=== PATIENT | male | born 1950 | race Caucasian/White ===

== ENCOUNTER 2020-09-27 07:55 | Outpatient (CLI) | payer MEDICARE ==
[2020-09-27 17:36] LABS: #Basophils 0.1 10x3/uL (0.0-0.2); #Eosinphils 0.2 10x3/uL (0.0-0.5); #Neutrophils 5.1 10x3/uL (1.5-8.4); %Basophils 0.6 % (0.0-2.0); %Eosinophils 1.7 % (0.0-6.0); %Lymphocytes 29.1 % (18.0-47.0); %Monocytes 11.7 % (0.0-10.0); %Neutrophils 56.7 % (40.0-75.0); Hemoglobin 14.5 g/dL (14.0-18.0); Mean Corpuscular HGB CONC 33.1 G/DL (32.0-36.0); Mean Corpuscular Hemoglobin 29.8 PG (27.0-33.0); Mean Corpuscular Volume 89.9 fl (80.0-100.0); Mean Platelet Volume 10.9 fl (7.4-10.4); Platelet Count 209 10x3/uL (130-400); Red Blood Cell (RBC) Count 4.87 10x6/uL (4.40-5.80); White Blood Cell (WBC) Count 8.9 10x3/uL (4.5-11.0)
[2020-09-27 18:00] LABS: PTT 25.5 sec (22.0-33.0); Prothrombin Time 10.7 sec (9.5-12.1)
[2020-09-27 18:46] LABS: ALT (SGPT) 62 U/L (8-55); AST (SGOT) 43 U/L (5-34); Albumin 4.4 g/dL (3.4-4.8); Alkaline Phosphatase 53 U/L (40-110); Anion Gap 18 mmol/L (10-20); BUN (Urea Nitrogen) 17 mg/dL (8.4-25.7); Bilirubin, Total 0.6 mg/dL (0.2-1.2); Calc. Creatinine Clearance 0 mL/min (70-130); Calcium 9.7 mg/dL (7.8-10.44); Carbon Dioxide 21 mmol/L (23-31); Chloride 103 mmol/L (98-107); Globulin 2.8 g/dL (2.4-3.5); Glucose 132 mg/dL (80-115); Potassium 4.3 mmol/L (3.5-5.1); Protein, Total 7.2 g/dL (5.8-8.1); Sodium 138 mmol/L (136-145)
[2020-09-28 04:15] LABS: SARS-CoV-2 PCR by NAA Not Detected (NotDetected)
== END 2020-09-27 07:56 | disposition home or self-care (01) ==
LOC: LABBT 07:55
PROVIDERS: ATTEND Internal Medicine Cardiovascular Disease
DX: Z01.812 Encounter for preprocedural laboratory examination (principal); Z20.822 Contact with and (suspected) exposure to COVID-19
CPT/HCPCS: 80053; 85025; 85610; 85730; U0003; U0005; 87635

== ENCOUNTER → 2020-10-02 | Day surgery (SDC) | payer MEDICARE, MEDICAID ==
[2020-10-01 10:02] VITALS: BMI 35.4
[~2020-10-02] MED LIST: Clopidogrel Bisulfate 300 MG TAB ONE; Fentanyl 100 MCG/2 ML VIAL ONE; Heparin 10,000 UNITS/ 10 ML VIAL ONE; Iopamidol 370 76% 100 ML VIAL ONE; Iopamidol 370 76% 50 ML VIAL FS ONE; Midazolam HCl 2 mg/2 ml Vial ONE; Nitroglycerin 100MG/250ML BOT 250 ML ONE; Verapamil 5 MG/2 ML VIAL ONE; hydrALAZINE 20 MG/ML VIAL ONE
--- NOTE | 2020-10-03 07:21 | EKG ---
Test Reason : PREOP Blood Pressure : / mmHG Vent. Rate : 066 BPM Atrial Rate : 066 BPM P-R Int : 184 ms QRS Dur : 084 ms QT Int : 382 ms P-R-T Axes : 054 -20 039 degrees QTc Int : 400 ms Normal sinus rhythm Moderate voltage criteria for LVH, may be normal variant Inferior infarct , age undetermined Nonspecific ST-T changes Abnormal ECG No previous ECGs available Confirmed by DR. Yunier BROWN ([id number]) on 10/03/2020 7:20:36 AM Referred By: KIMBERLY Confirmed By:DR. Yunier BROWN
--- NOTE | 2020-10-03 07:23 | EKG ---
Test Reason : POST STENT Blood Pressure : / mmHG Vent. Rate : 068 BPM Atrial Rate : 068 BPM P-R Int : 192 ms QRS Dur : 090 ms QT Int : 384 ms P-R-T Axes : 061 -16 020 degrees QTc Int : 408 ms Normal sinus rhythm Minimal voltage criteria for LVH, may be normal variant Borderline ECG When compared with ECG of 02-OCT-2020 07:01, (Unconfirmed) Nonspecific T wave abnormality, improved in Lateral leads Confirmed by DR. Yunier BROWN ([id number]) on 10/03/2020 7:22:54 AM Referred By: KIMBERLY Confirmed By:DR. Yunier BROWN
== END ==
LOC: CCL 06:14
PROVIDERS: ATTEND Internal Medicine Cardiovascular Disease
PROC: 02703DZ Dilation of Coronary Artery, One Artery with Intraluminal Device, Percutaneous Approach (ICD-10-PCS; principal; 2020-10-02)
PROC: 4A023N7 Measurement of Cardiac Sampling and Pressure, Left Heart, Percutaneous Approach (ICD-10-PCS; 2020-10-02)
PROC: B2111ZZ Fluoroscopy of Multiple Coronary Arteries using Low Osmolar Contrast (ICD-10-PCS; 2020-10-02)
DX: I25.10 Atherosclerotic heart disease of native coronary artery without angina pectoris (principal); Z79.84 Long term (current) use of oral hypoglycemic drugs; Z79.899 Other long term (current) drug therapy; Z88.0 Allergy status to penicillin; Z88.7 Allergy status to serum and vaccine
CPT/HCPCS: 85347; 92928; 93005; 93010; 93454; 97139; 99152; 99153; C1874; C9600; J0360; J1644; J2250; J3010; Q9967

== ENCOUNTER 2021-12-13 01:51 | Emergency (ER) | payer MEDICARE, MEDICAID ==
[2021-12-13] MEDS ORDERED: methylPREDNISolone Sod Succ/PF 125 MG/2 ML VIAL ONE (02:09)
[2021-12-13] MEDS ORDERED: Famotidine/PF 20 mg/2ml Vial ONE (02:09)
== END 2021-12-13 04:31 | disposition home or self-care (01) ==
LOC: ERS 01:51
DX: L50.0 Allergic urticaria (principal)
CPT/HCPCS: 96374; 96375; J2930; S0028

== ENCOUNTER 2021-12-26 15:20 | Observation (INO) | payer MEDICARE, MEDICAID ==
[2021-12-26] MEDS ORDERED: EPINEPHrine 1 MG/ML VIAL ONE (15:44)
[2021-12-26] MEDS ORDERED: methylPREDNISolone Sod Succ/PF 125 MG/2 ML VIAL ONE (16:03)
[2021-12-26] MEDS ORDERED: Famotidine/PF 20 mg/2ml Vial ONE (16:03)
[2021-12-26] MEDS ORDERED: diphenhydrAMINE 50 MG/ML VIAL ONE (16:03)
[2021-12-26 16:08] LABS: #Basophils 0.2 thou/uL (0.0-0.2); #Eosinphils 0.1 thou/uL (0.0-0.7); #Lymphocytes 5.7 thou/uL (1.20-3.40); #Monocytes 0.8 thou/uL (0.11-0.59); #Neutrophils 5.1 thou/uL (1.40-6.50); %Basophils 1.4 % (0.0-1.0); %Lymphocytes 48.1 % (21.0-51.0); %Monocytes 6.4 % (0.0-10.0); %Neutrophils 43.1 % (42.0-75.0); Hemoglobin 19.1 g/dL (14.0-18.0); Mean Corpuscular HGB CONC 33.3 g/dL (32.0-36.0); Mean Corpuscular Hemoglobin 31.3 pg (27.0-31.0); Mean Corpuscular Volume 93.7 fL (78.0-98.0); Mean Platelet Volume 7.4 fL (7.4-10.4); Platelet Count 276 thou/uL (130-400); RBC Distribution Width 13.3 % (11.5-14.5); Red Blood Cell (RBC) Count 6.13 mill/uL (4.70-6.10); White Blood Cell (WBC) Count 11.8 thou/uL (4.8-10.8)
[2021-12-26 16:57] LABS: ALT (SGPT) 29 U/L (8-55); AST (SGOT) 29 U/L (5-34); Albumin 4.2 g/dL (3.4-4.8); Alkaline Phosphatase 57 U/L (40-110); Anion Gap 21 mmol/L (10-20); BUN (Urea Nitrogen) 20 mg/dL (8.4-25.7); Bilirubin, Total 0.8 mg/dL (0.2-1.2); Calc. Creatinine Clearance 0 mL/min (70-130); Calcium 9.5 mg/dL (7.8-10.44); Carbon Dioxide 19 mmol/L (23-31); Chloride 100 mmol/L (98-107); Globulin 3.7 g/dL (2.4-3.5); Glucose 455 mg/dL (83-110); Potassium 5.5 mmol/L (3.5-5.1); Protein, Total 7.9 g/dL (5.8-8.1); Sodium 134 mmol/L (136-145)
[2021-12-26] MEDS ORDERED: Dextrose 5% in Water 1,000 ML IV PRN (19:32)
[2021-12-26] MEDS ORDERED: Dextrose 50% Abboject 50 ML SYRINGE SLOW IVP PRN (19:32)
[2021-12-26] MEDS ORDERED: Acetaminophen 500 MG TAB PO PRN (19:41)
[2021-12-26 20:05] VITALS: BMI 35.0
[2021-12-26] MEDS ORDERED: Labetalol HCl 100 MG/20 ML VIAL SLOW IVP PRN (20:36)
[2021-12-26] MEDS: Insulin Glargine 30 UNITS/0.3 ML VIAL SC SCH (20:50)
[2021-12-26] MEDS: HumaLOG 300 UNITS/3 ML VIAL SC PRN (20:51)
[2021-12-27 05:31] LABS: Anion Gap 16 mmol/L (10-20); BUN (Urea Nitrogen) 19 mg/dL (8.4-25.7); Calc. Creatinine Clearance 94 mL/min (70-130); Carbon Dioxide 19 mmol/L (23-31); Chloride 100 mmol/L (98-107); Glucose 457 mg/dL (83-110); Potassium 4.4 mmol/L (3.5-5.1); Sodium 131 mmol/L (136-145)
[2021-12-27 05:40] LABS: #Lymphocytes 1.4 thou/uL (1.20-3.40); #Monocytes 0.4 thou/uL (0.11-0.59); %Basophils 0.4 % (0.0-1.0); %Eosinophils 0.2 % (0.0-10.0); %Lymphocytes 12.6 % (21.0-51.0); %Monocytes 3.5 % (0.0-10.0); %Neutrophils 83.3 % (42.0-75.0); Mean Corpuscular HGB CONC 32.8 g/dL (32.0-36.0); Mean Corpuscular Hemoglobin 30.7 pg (27.0-31.0); Mean Corpuscular Volume 93.6 fL (78.0-98.0); Mean Platelet Volume 7.3 fL (7.4-10.4); Platelet Count 203 thou/uL (130-400); RBC Distribution Width 13.2 % (11.5-14.5); Red Blood Cell (RBC) Count 5.22 mill/uL (4.70-6.10); White Blood Cell (WBC) Count 10.8 thou/uL (4.8-10.8)
[2021-12-27] MEDS: HumaLOG 300 UNITS/3 ML VIAL SC PRN ×2 (05:59→11:51)
[2021-12-27] MEDS ORDERED: predniSONE 20 MG TAB PO SCH (08:00)
[2021-12-27] MEDS: Insulin Glargine 30 UNITS/0.3 ML VIAL SC SCH (08:27)
[2021-12-27] MEDS ORDERED: Enoxaparin Sodium 40 MG/0.4 ML SYRINGE SC SCH (09:00)
[2021-12-27] MEDS ORDERED: Insulin Glargine 30 UNITS/0.3 ML VIAL SC SCH (09:00)
[2021-12-27] MEDS ORDERED: Ibuprofen 600 MG TAB PO PRN (09:12)
[2021-12-27] MEDS ORDERED: Lisinopril 20 MG TAB PO SCH (09:45)
[2021-12-27] MEDS ORDERED: Metoprolol Tartrate 25 MG TAB PO SCH (09:45)
[2021-12-27] MEDS ORDERED: metFORMIN 500 MG TAB PO SCH ×2 (09:45→17:00)
[2021-12-27] MEDS ORDERED: Montelukast Sodium 10 mg Tablet PO SCH (09:45)
[2021-12-27] MEDS ORDERED: Albuterol Sulfate 2.5 mg/3 ml Neb NEB PRN (09:50)
[2021-12-27] MEDS ORDERED: Fluticasone Propionate Nasal Spray 16 gm Bottle NASAL SCH (10:00)
[2021-12-27] MEDS ORDERED: diphenhydrAMINE 50 MG CAP PO PRN (10:41)
[2021-12-27 12:50] VITALS: BP 168/89; TEMP 97.9
[2021-12-27 16:11] LABS: SARS-CoV-2 PCR by NAA Not Detected (NotDetected)
[2021-12-27] MEDS ORDERED: Atorvastatin Calcium 40 MG TAB PO SCH (21:00)
[2021-12-28] MEDS ORDERED: Montelukast Sodium 10 mg Tablet PO SCH (09:00)
[2021-12-28] MEDS ORDERED: Lisinopril 20 MG TAB PO SCH (09:00)
[2021-12-28] MEDS ORDERED: Fluticasone Propionate Nasal Spray 16 gm Bottle NASAL SCH (09:00)
[2021-12-28] MEDS ORDERED: Metoprolol Tartrate 25 MG TAB PO SCH (09:00)
== END 2021-12-27 16:25 | disposition home or self-care (01) ==
LOC: ERS 15:20 → 2SW 18:18
PROVIDERS: ADMIT Family Medicine; ATTEND Family Medicine
DX: T78.2XXA Anaphylactic shock, unspecified, initial encounter (principal); T60.91XA Toxic effect of unspecified pesticide, accidental (unintentional), initial encounter; L50.0 Allergic urticaria; I95.89 Other hypotension; R22.0 Localized swelling, mass and lump, head; I10 Essential (primary) hypertension; N17.9 Acute kidney failure, unspecified; E11.9 Type 2 diabetes mellitus without complications; J30.2 Other seasonal allergic rhinitis; E78.5 Hyperlipidemia, unspecified; I25.10 Atherosclerotic heart disease of native coronary artery without angina pectoris; I42.9 Cardiomyopathy, unspecified; K21.9 Gastro-esophageal reflux disease without esophagitis; Z79.4 Long term (current) use of insulin; Z79.84 Long term (current) use of oral hypoglycemic drugs; Z79.899 Other long term (current) drug therapy; Z88.0 Allergy status to penicillin; Z88.7 Allergy status to serum and vaccine; Z95.3 Presence of xenogenic heart valve; Z95.5 Presence of coronary angioplasty implant and graft; Z20.822 Contact with and (suspected) exposure to COVID-19
CPT/HCPCS: 71045; 80048; 80053; 82962 ×2; 84484; 85025 ×2; 93005; 94760; 96372; 96374; 96375; 99285; J0171; U0003; U0005; 36415; 36416; G0378; J1200; J1650; J1815; J2930; J7512; S0028

== ENCOUNTER 2022-01-06 12:06 | Emergency (ER) | payer MEDICARE, OTHER ==
[2022-01-06] MEDS ORDERED: methylPREDNISolone Sod Succ/PF 125 MG/2 ML VIAL ONE (12:47)
[2022-01-06] MEDS ORDERED: Famotidine/PF 20 mg/2ml Vial ONE (12:47)
== END 2022-01-06 15:48 | disposition home or self-care (01) ==
LOC: ERS 12:06
DX: T78.40XA Allergy, unspecified, initial encounter (principal); I25.10 Atherosclerotic heart disease of native coronary artery without angina pectoris; E11.9 Type 2 diabetes mellitus without complications; I10 Essential (primary) hypertension; E78.5 Hyperlipidemia, unspecified; K21.9 Gastro-esophageal reflux disease without esophagitis
CPT/HCPCS: 96374; 96375; J2930; S0028

== ENCOUNTER 2022-01-21 03:26 | Emergency (ER) | payer MEDICARE, MEDICAID ==
[2022-01-21] MEDS ORDERED: methylPREDNISolone Sod Succ/PF 125 MG/2 ML VIAL ONE (03:37)
[2022-01-21] MEDS ORDERED: Famotidine 20 MG TAB ONE (03:51)
[2022-01-21] MEDS ORDERED: Acetaminophen 500 MG TAB ONE (04:03)
== END 2022-01-21 05:16 | disposition home or self-care (01) ==
LOC: ERS 03:26
DX: T78.40XA Allergy, unspecified, initial encounter (principal); E11.9 Type 2 diabetes mellitus without complications; I10 Essential (primary) hypertension; K21.9 Gastro-esophageal reflux disease without esophagitis; I25.10 Atherosclerotic heart disease of native coronary artery without angina pectoris; E78.5 Hyperlipidemia, unspecified; Z79.51 Long term (current) use of inhaled steroids; Z79.84 Long term (current) use of oral hypoglycemic drugs; Z79.899 Other long term (current) drug therapy
CPT/HCPCS: 93005; 96374; J2930

== ENCOUNTER 2022-01-22 10:00 | Emergency (ER) | payer MEDICARE, MEDICAID ==
[2022-01-22] MEDS ORDERED: methylPREDNISolone Sod Succ/PF 125 MG/2 ML VIAL ONE (11:50)
== END 2022-01-22 12:27 | disposition home or self-care (01) ==
LOC: ERS 10:00
DX: T78.40XA Allergy, unspecified, initial encounter (principal); I25.10 Atherosclerotic heart disease of native coronary artery without angina pectoris; E11.9 Type 2 diabetes mellitus without complications; I10 Essential (primary) hypertension; K21.9 Gastro-esophageal reflux disease without esophagitis; E78.5 Hyperlipidemia, unspecified; Z79.84 Long term (current) use of oral hypoglycemic drugs; Z79.51 Long term (current) use of inhaled steroids; Z79.899 Other long term (current) drug therapy
CPT/HCPCS: 96372; 99283; J2930

== ENCOUNTER 2022-01-26 19:39 | Emergency (ER) | payer MEDICARE, MEDICAID ==
[2022-01-26] MEDS ORDERED: methylPREDNISolone Sod Succ/PF 125 MG/2 ML VIAL ONE (20:37)
[2022-01-26] MEDS ORDERED: Famotidine/PF 20 mg/2ml Vial ONE (20:37)
[2022-01-26] MEDS ORDERED: diphenhydrAMINE 50 MG/ML VIAL ONE (20:37)
== END 2022-01-26 20:15 | disposition home or self-care (01) ==
LOC: ERS 19:39
DX: L50.1 Idiopathic urticaria (principal); I25.10 Atherosclerotic heart disease of native coronary artery without angina pectoris; E11.9 Type 2 diabetes mellitus without complications; K21.9 Gastro-esophageal reflux disease without esophagitis; E78.5 Hyperlipidemia, unspecified; I10 Essential (primary) hypertension; G47.30 Sleep apnea, unspecified; Z79.84 Long term (current) use of oral hypoglycemic drugs; Z79.899 Other long term (current) drug therapy; Z79.52 Long term (current) use of systemic steroids
CPT/HCPCS: 96374; 96375; J1200; J2930; S0028

== ENCOUNTER 2022-01-27 15:14 | Emergency (ER) | payer MEDICARE, OTHER ==
[2022-01-27] MEDS ORDERED: methylPREDNISolone Sod Succ/PF 125 MG/2 ML VIAL ONE (15:33)
== END 2022-01-27 15:50 | disposition home or self-care (01) ==
LOC: ERS 15:14
DX: L50.1 Idiopathic urticaria (principal); I25.10 Atherosclerotic heart disease of native coronary artery without angina pectoris; I10 Essential (primary) hypertension; E11.9 Type 2 diabetes mellitus without complications; K21.9 Gastro-esophageal reflux disease without esophagitis; E78.5 Hyperlipidemia, unspecified; G47.30 Sleep apnea, unspecified; I42.9 Cardiomyopathy, unspecified
CPT/HCPCS: 96372; 99282; J2930

== ENCOUNTER 2022-02-02 15:50 | Emergency (ER) | payer OTHER, MEDICAID, MEDICARE ==
[2022-02-02] MEDS ORDERED: Dexamethasone 4 MG TAB ONE (17:20)
[2022-02-02] MEDS ORDERED: Dexamethasone 10 MG/ML VIAL ONE (17:20)
== END 2022-02-02 17:26 | disposition home or self-care (01) ==
LOC: ERS 15:50
DX: L50.9 Urticaria, unspecified (principal)
CPT/HCPCS: 99282; J1100; J8540

== ENCOUNTER 2022-02-04 16:10 | Emergency (ER) | payer OTHER, MEDICAID, MEDICARE ==
[2022-02-04 16:39] LABS: #Neutrophils 6.6 thou/uL (1.40-6.50); %Basophils 0.5 % (0.0-1.0); %Eosinophils 1.3 % (0.0-10.0); %Lymphocytes 27.4 % (21.0-51.0); %Monocytes 10.3 % (0.0-10.0); %Neutrophils 60.5 % (42.0-75.0); Hemoglobin 14.6 g/dL (14.0-18.0); Mean Corpuscular HGB CONC 32.7 g/dL (32.0-36.0); Mean Corpuscular Hemoglobin 30.9 pg (27.0-31.0); Mean Corpuscular Volume 94.5 fL (78.0-98.0); Mean Platelet Volume 7.2 fL (7.4-10.4); Platelet Count 244 thou/uL (130-400); RBC Distribution Width 13.4 % (11.5-14.5); Red Blood Cell (RBC) Count 4.73 mill/uL (4.70-6.10); White Blood Cell (WBC) Count 10.9 thou/uL (4.8-10.8)
[2022-02-04 16:40] LABS: #Basophils 0.1 thou/uL (0.0-0.2); #Eosinphils 0.1 thou/uL (0.0-0.7); #Monocytes 1.1 thou/uL (0.11-0.59)
[2022-02-04 17:01] LABS: ALT (SGPT) 26 U/L (8-55); AST (SGOT) 17 U/L (5-34); Albumin 3.7 g/dL (3.4-4.8); Alkaline Phosphatase 53 U/L (40-110); Anion Gap 14 mmol/L (10-20); BUN (Urea Nitrogen) 21 mg/dL (8.4-25.7); Bilirubin, Total 0.7 mg/dL (0.2-1.2); Calc. Creatinine Clearance 0 mL/min (70-130); Calcium 9.2 mg/dL (7.8-10.44); Carbon Dioxide 23 mmol/L (23-31); Chloride 108 mmol/L (98-107); Globulin 3.1 g/dL (2.4-3.5); Glucose 178 mg/dL (83-110); Potassium 3.7 mmol/L (3.5-5.1); Protein, Total 6.8 g/dL (5.8-8.1); Sodium 141 mmol/L (136-145)
== END 2022-02-04 18:31 | disposition home or self-care (01) ==
LOC: ERS 16:10
DX: R73.9 Hyperglycemia, unspecified (principal)
CPT/HCPCS: 36415; 80053; 85025; 99284

== ENCOUNTER 2022-02-11 20:11 | Emergency (ER) | payer MEDICARE, MEDICAID ==
[2022-02-11] MEDS ORDERED: Dexamethasone 4 MG TAB ONE (20:25)
[2022-02-11] MEDS ORDERED: diphenhydrAMINE 25 MG CAP ONE (20:25)
== END 2022-02-11 21:30 | disposition home or self-care (01) ==
LOC: ERS 20:11
DX: T78.40XA Allergy, unspecified, initial encounter (principal); E11.9 Type 2 diabetes mellitus without complications; I10 Essential (primary) hypertension; E78.00 Pure hypercholesterolemia, unspecified; I25.10 Atherosclerotic heart disease of native coronary artery without angina pectoris; K21.9 Gastro-esophageal reflux disease without esophagitis; G47.30 Sleep apnea, unspecified; Z79.899 Other long term (current) drug therapy; Z79.84 Long term (current) use of oral hypoglycemic drugs; Z79.51 Long term (current) use of inhaled steroids
CPT/HCPCS: 99284; J8540

== ENCOUNTER 2022-02-21 17:06 | Emergency (ER) | payer OTHER ==
[2022-02-21] MEDS ORDERED: Dexameth. Sod Phosp. 10 MG/ML (CHEMO USE ONLY) ONE (18:10)
== END 2022-02-21 18:15 | disposition home or self-care (01) ==
LOC: ERS 17:06
DX: R21 Rash and other nonspecific skin eruption (principal); E11.9 Type 2 diabetes mellitus without complications; I10 Essential (primary) hypertension; E78.00 Pure hypercholesterolemia, unspecified; I25.10 Atherosclerotic heart disease of native coronary artery without angina pectoris; K21.9 Gastro-esophageal reflux disease without esophagitis; G47.30 Sleep apnea, unspecified; Z79.84 Long term (current) use of oral hypoglycemic drugs; Z79.899 Other long term (current) drug therapy; Z79.01 Long term (current) use of anticoagulants
CPT/HCPCS: 99282; J1100

== ENCOUNTER 2022-03-13 14:28 | Emergency (ER) | payer MEDICARE, MEDICAID ==
[2022-03-13] MEDS ORDERED: Dexameth. Sod Phosp. 10 MG/ML (CHEMO USE ONLY) ONE (15:32)
== END 2022-03-13 15:38 | disposition home or self-care (01) ==
LOC: ERS 14:28
DX: R21 Rash and other nonspecific skin eruption (principal); E11.9 Type 2 diabetes mellitus without complications; I10 Essential (primary) hypertension; E78.00 Pure hypercholesterolemia, unspecified; K21.9 Gastro-esophageal reflux disease without esophagitis
CPT/HCPCS: 99282; J1100